=== PATIENT | male | born 1960 | race Caucasian/White ===

== ENCOUNTER → 2024-12-26 | Outpatient (CLI) | payer SELFPAY ==
--- NOTE | 2024-12-26 10:53 | RAD_ITS ---
PROCEDURE: KNEE 4 OR MORE VIEWS 12/26/2024 REASON FOR EXAM: OSTEOARTHRITIS TECHNIQUE: KNEE 4 OR MORE VIEWS COMPARISON: No FINDINGS: Severe medial femorotibial joint space narrowing. Chondrocalcinosis. Osteophytes. Moderate lateral patellofemoral joint space narrowing. No acute bone or soft tissue pathology. RAD/Knee 4 or More Views IMPRESSION: Severe left knee osteoarthritis. Reading [facility]
--- NOTE | 2024-12-26 10:56 | RAD_ITS ---
EXAM: XR Right Hand Complete, 3 or More Views CLINICAL INDICATION: RHEUMATOID ARTHRITIS TECHNIQUE: Frontal, lateral and oblique views of the right hand. COMPARISON: No relevant prior studies available. FINDINGS: BONES/JOINTS: Mild degenerative changes of the intercarpal joint. Mild degenerative change of the D IP joints. No acute fracture. No dislocation. SOFT TISSUES: Soft tissue swelling. RAD/Hand Min 3 Views IMPRESSION: Degenerative changes as above. Reading Location: [id number]
--- NOTE | 2024-12-26 10:57 | RAD_ITS ---
PROCEDURE: KNEE 4 OR MORE VIEWS 12/26/2024 REASON FOR EXAM: ARTHRITIS TECHNIQUE: KNEE 4 OR MORE VIEWS COMPARISON: No FINDINGS: Moderate medial femorotibial joint space narrowing. Chondrocalcinosis. Small osteophytes. No acute bone or soft tissue pathology. RAD/Knee 4 or More Views IMPRESSION: Moderate right knee osteoarthritis Reading Location: [place] [id number]
--- NOTE | 2024-12-26 11:07 | RAD_ITS ---
EXAM: XR Left Hand Complete, 3 or More Views CLINICAL INDICATION: ARTHRITIS TECHNIQUE: Frontal, lateral and oblique views of the left hand. COMPARISON: No relevant prior studies available. FINDINGS: BONES/JOINTS: Apparent widening of the scapholunate joint space may suggest ligamentous injury. Clinical correlation is recommended. No acute fracture. No dislocation. SOFT TISSUES: Soft tissue swelling. RAD/Hand Min 3 Views IMPRESSION: 1. Soft tissue swelling. 2. Apparent widening of the scapholunate joint space may suggest ligamentous i njury. Clinical correlation is recommended. Reading Location: [id number]
--- NOTE | 2024-12-26 11:07 | RAD_ITS ---
PROCEDURE: SHOULDER MIN 2 VIEWS 12/26/2024 REASON FOR EXAM: ARTHRITIS TECHNIQUE: Four view right shoulder series. COMPARISON: None. RAD/Shoulder min 2 Views IMPRESSION: [id number] right acromioclavicular joint degenerative changes are seen. Advanced right glenohumeral joint degenerative changes are noted, with deformit y on both sides of the articulation, osteophytosis, osseous reactive changes, and severe associated joint narrowing. No acute fracture or dislocation is seen. Reading Location: [place] [id number]
[2024-12-26 12:29] LABS: Hematocrit 39.3 % (40-54); Hemoglobin 13.0 g/dL (13.0-16.5); Immature Granulocytes Count 0.030 X10^3/uL (0.0-0.0); Mean Corp Hgb Conc 33.1 g/dL (32-36); Mean Corpuscular Volume 95.4 fL (80-94); Mean Platelet Vol. 9.9 fl (6.2-12.0); NRBC Flagged by Analyzer 0 % (0-5); Platelet Count 270 K/mm3 (150-450); RBC Distribution Width CV 13.5 % (11.6-14.6); RBC Distribution Width SD 47.8 fl (35.1-43.9); Red Blood Count 4.12 M/mm3 (4.6-6.2); White Blood Count 5.1 K/mm3 (4.4-11.0)
[2024-12-26 14:46] LABS: AST(SGOT) 22 U/L (<=37); Alanine Aminotransfer ALT/SGPT 14 U/L (<=46); Albumin, Serum 3.9 g/dL (3.4-4.8); Alkaline Phosphatase 123 U/L (40-129); Anion Gap 14 (5-15); BUN 26 mg/dL (4-19); BUN/Creat Ratio 26.4 RATIO (10-20); Calcium,Total 9.4 mg/dL (7.6-11.0); Carbon Dioxide 18.4 mmol/L (21.0-32.0); Chloride 106 mmol/L (98-108); Globulin 3.1 g/dL (2.2-4.2); Glucose 105 mg/dL (70-99); Potassium 4.6 mmol/L (3.3-5.1); Vitamin D,25 Hydroxy 18.8 ng/mL (30-100)
[2024-12-26 14:53] LABS: Hepatitis B Surface Antigen Nonreactive (Nonreactive); Hepatitis C Antibody Nonreactive (Nonreactive)
== END | disposition home or self-care (01) ==
PROVIDERS: PCP Family Medicine; Referring Provider Internal Medicine Rheumatology; Visit Provider Internal Medicine Rheumatology
DX: M05.79 Rheumatoid arthritis with rheumatoid factor of multiple sites without organ or systems involvement (principal); M17.0 Bilateral primary osteoarthritis of knee
CPT/HCPCS: 36415; 73030; 73130; 73564; 80053; 82306; 85025; 86431; 86706; 86803; 87340